=== PATIENT | female | born 1970 | race Caucasian/White ===

== ENCOUNTER 2017-03-01 18:05 | Inpatient (IN) | payer MEDICAID ==
[~2017-03-01] VITALS: Ht 160 cm; Wt 69.4 kg
[2017-03-01 19:01] LABS: BASOPHILS 0.2 % (0-2); HEMATOCRIT 47.6 % (36.0-48.0); HEMOGLOBIN 15.8 g/dL (12-16); IMMATURE GRANULOCYTES 0.3 % (0-5); LYMPHOCYTES 15.7 % (15-50); MCH 29.8 pg (26.0-34.0); MCHC 33.2 g/dL (31.0-37.0); MCV 89.6 fL (80.0-100.0); MEAN PLATELET VOLUME 9.4 fL (7.4-10.4); MONOCYTES 8.4 % (2-11); NEUTROPHILS 74.4 % (40-80); PLATELET COUNT 310 10x3/uL (130-400); RBC 5.31 10x6/uL (4.00-5.40); RDW 13.5 % (11.5-14.5); WBC 12.6 10x3/uL (4.8-10.8)
[2017-03-01 19:18] LABS: ALBUMIN 3.9 g/dL (3.4-5.0); ANION GAP 16.3 mmol/L (8-16); BILIRUBIN - TOTAL 0.6 mg/dL (0.2-1.3); CALCIUM 9.1 mg/dL (8.5-10.1); CARBON DIOXIDE 22.6 mmol/L (21.0-32.0); POTASSIUM - SERUM 3.9 mmol/L (3.5-5.1); PROTEIN - SERUM 7.3 g/dL (6.4-8.2)
--- NOTE | 2017-03-01 23:53 | NUR ---
RECIEVED PT FROM ER VIA STRETCHER, ASSISTED TO BED, ASSESSMENT, HISTORY AND MED REC COMPLETED, ABD CRAMPING AND NAUSEA PRESENT, DC'D 20G IV TO R FA WITH CATH INTACT DUE TO INFILTRATION, ORIENTED TO ROOM, CALL LIGHT IN REACH, WILL IMPLEMENT ORDERS
[2017-03-02] MEDS ORDERED: PAXIL20 MG PO (00:09)
--- NOTE | 2017-03-02 00:10 | NUR ---
14 [place] NGT INSERTED IN L NARE X 1 ATTEMPT BY MANFRED CAMERON LPN, PLACEMENT CHECKED, GREEN LIQUID TO SUCTION CANISTER, PT SANTIAGO WELL, SET TO LIT, SECURED TO NOSE AND GOWN, SR'S UP, CL IN REACH
[2017-03-02 03:14] VITALS: BP 127/67; BMI 27.1
[2017-03-02 04:00] VITALS: BP 101/60
[2017-03-02 05:43] LABS: APPEARANCE CLEAR (CLEAR); BILIRUBIN NEGATIVE (NEGATIVE); COLOR YELLOW (YELLOW); GLUCOSE NEGATIVE (NEGATIVE); KETONE NEGATIVE (NEGATIVE); LEUKOCYTE ESTERASE NEGATIVE (NEGATIVE); NITRITE NEGATIVE (NEGATIVE); PROTEIN NEGATIVE (NEGATIVE); UROBILINOGEN NORMAL (NORMAL)
--- NOTE | 2017-03-02 07:18 | NUR ---
REPORT RECEIVED FROM COORDINATOR OF HEALTH SERVICES NURSE. CALL LIGHT IN REACH.
[2017-03-02 07:50] VITALS: BP 102/76
--- NOTE | 2017-03-02 07:51 | NUR ---
ASSESSMENT COMPLETED. C/O PAIN OF 8 TO ABDOMEN. DEMEROL 50 MG SIVP. OFFERED SCDs BUT REFUSES. [place] HAT PLACED IN BR FOR MEASUREMENT OF URINE OUTPUT. CALL LIGHT IN REACH. WILL CONTINUE WITH PLAN OF CARE.
--- NOTE | 2017-03-02 07:53 | NUR ---
PASSWORD OBTAINED AND PLACED IN COMPUTER.
--- NOTE | 2017-03-02 09:43 | NUR ---
DOES NOT WANT TO GET DISTURBED FOR A COUPLE OF HOURS.
--- NOTE | 2017-03-02 11:23 | NUR ---
REQUESTING IV PAIN MEDS D/T SPASMS. DEMEROL 50 MG SIVP. STATES SHE THOUGHT HER OBSTRUCTION WAS CLEARED BECAUSE SHE HEARD IT "POP". LISTENTED TO HER BOWEL SOUNDS AND THEY WERE STILL ABSENT.
[2017-03-02 11:30] VITALS: BP 125/73
[2017-03-02 12:26] VITALS: Ht 160 cm; Wt 69.4 kg
--- NOTE | 2017-03-02 13:26 | NUR ---
IN ROOM WITH EYES CLOSED. RESP EVEN AND UNLABORED. CALL LIGHT IN REACH.
--- NOTE | 2017-03-02 14:40 | NUR ---
NGT CLAMPED PER DR. JAY'S ORDER. INSTRUCTED PATIENT THAT THE MD WANTS HER TO GET UP AND AMBULATE IN THE HALLS AND I ALSO OFFERED TO WALK WITH HER BUT THE PATIENT SAID SHE WANTED HER MOTHER TO WALK WITH HER WHOM WILL BE HERE IN 20 MINUTES.
--- NOTE | 2017-03-02 15:27 | NUR ---
* Is the patient Alert and Oriented? Yes 0 * How many steps to enter\exit or inside your home? 5 0 * PCP [facility] 0 * Pharmacy [facility] 0 * Preadmission Environment Home with Family 0 * ADLs Independent 0 * Equipment None 0 * Community resources currently utilized None 0 * Additional services required to return to the preadmission environment? Yes 0 * Can the patient safely return to the preadmission environment? Yes 0 * Has this patient been hospitalized within the prior 30 days at any hospital? No Patient Name: LALI BOYLE Admission Status: ER Accout number: [id number] Admission Date: 03-02-2017 : 1970 Admission Diagnosis: Attending: CLINT Current LOS: 1 Anticipated DC Date: Planned Disposition: Home Primary Insurance: [employer] [facility] Discharge Planning Comments: CM met with patient to assess discharge planning needs. Patient states she lives independently with her children where she plans to be discharged too. Patient states that her mother (Kaelyn Boyle) [phone] will be her trailer driver home. She states that her home is safe. At this present time she refuses home health. 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 CM will continue to follow and assist as needed. Patient denies any other CM needs at this time. PCP: [facility]: [facility] ([phone]) Pulmonary Function Technologist: Margaret Brady
[2017-03-02 15:43] VITALS: BP 117/66
--- NOTE | 2017-03-02 15:46 | NUR ---
STATES THAT SHE WALKED AROUND WITH HER MOTHER IN THE ROOM BUT SHE IS CRAMPING TOO BAD TO GET UP AND WALK NOW. KYLERN, STATED THAT SHE HAD A BM WHICH WAS LIQUID. I EXPLAINED TO PATIENT THAT SHE IS GOING TO HAVE TO WALK IN THE HALLS BEFORE THE DAY IS OVER WITH. VERBALIZED UNDERSTANDING. WILL GIVE PAIN MED AFTER I FINISH GIVING MEDS WITH ANOTHER PATIENT.
--- NOTE | 2017-03-02 16:49 | NUR ---
DEMEROL 50 MG SIVP PER C/O PAIN TO ABDOMEN. CALL LIGHT IN REACH.
--- NOTE | 2017-03-02 18:39 | NUR ---
STILL HAS NOT WALKED IN HALLWAYS. STATES SHE WILL LATER, NO CHANGES IN INITIAL ASSESSMENT. STILL REFUSES SCDs. CALL LIGHT IN REACH. WILL CONTINUE WITH PLAN OF CARE.
--- NOTE | 2017-03-02 19:05 | NUR ---
PT AMBULATING IN LUND WITH FAMILY, NO DISTRESS NOTED
[2017-03-02 20:00] VITALS: BP 115/76
--- NOTE | 2017-03-02 20:20 | NUR ---
PAGED FOR ABD SPASM MEDICATION
--- NOTE | 2017-03-02 20:30 | NUR ---
DR GALLARDO RETURNED PAGE, ORDERS RECIEVED, WILL IMPLEMENT
--- NOTE | 2017-03-02 21:21 | NUR ---
IV FLUIDS HUNG PER NOV, LEVSIN SUBLINGUAL GIVEN FOR C/O ABD SPASMS, SANTIAGO WELL, DENIES FURTHER NEEDS, CL IN REACH
--- NOTE | 2017-03-02 23:48 | NUR ---
DENIES NEEDS AT THIS TIME, CL IN REACH
[2017-03-03] VITALS: BP 101/63
--- NOTE | 2017-03-03 01:52 | NUR ---
RESTING WITH EYES CLOSED, RESP WITH EASE, NGT IN PLACE AND CLAMPED, SR'S UP, CL IN REACH
--- NOTE | 2017-03-03 03:00 | NUR ---
HYSOSCAMINE GIVEN FOR ABD SPASM, SANTIAGO WELL, DENIES OTHER NEEDS, CL IN REACH
[2017-03-03 04:00] VITALS: BP 104/37
[2017-03-03 05:09] LABS: BASOPHILS 0.2 % (0-2); HEMATOCRIT 41.9 % (36.0-48.0); HEMOGLOBIN 13.6 g/dL (12-16); IMMATURE GRANULOCYTES 0.1 % (0-5); LYMPHOCYTES 28.3 % (15-50); MCH 29.9 pg (26.0-34.0); MCHC 32.5 g/dL (31.0-37.0); MEAN PLATELET VOLUME 9.6 fL (7.4-10.4); MONOCYTES 7.5 % (2-11); NEUTROPHILS 62.9 % (40-80); PLATELET COUNT 317 10x3/uL (130-400); RBC 4.55 10x6/uL (4.00-5.40); RDW 13.5 % (11.5-14.5); WBC 10.9 10x3/uL (4.8-10.8)
[2017-03-03 05:12] LABS: MCV 92.1 fL (80.0-100.0)
[2017-03-03 05:32] LABS: CALCIUM 8.2 mg/dL (8.5-10.1); CARBON DIOXIDE 22.3 mmol/L (21.0-32.0); CHLORIDE - SERUM 106 mmol/L (98-107); CREATININE - SERUM 0.8 mg/dL (0.6-1.3); POTASSIUM - SERUM 4.3 mmol/L (3.5-5.1); SODIUM 139 mmol/L (136-145); UREA NITROGEN 11 mg/dL (7-18); eGFR NON AFRICAN AMERICAN 81 mL/min (90-120)
[2017-03-03 05:45] LABS: CALC OSMOLALITY 274 mosm/kg (275-300)
[2017-03-03 05:49] LABS: GLUCOSE 69 mg/dL (74-106)
--- NOTE | 2017-03-03 07:15 | NUR ---
REPORT RECEIVED FROM TAIL WORKER NURSE. CALL LIGHT IN REACH.
[2017-03-03] MEDS ORDERED: LEVSIN/ANASP0.125 MG SL (07:20)
--- NOTE | 2017-03-03 07:30 | NUR ---
ASSESSMENT COMPLETED. NGT DC'D WITH TIP INTACT. IV DC'D WITH TIP INTACT. WILL TAKE SHOWER. WAITING ON DC PAPERWORK AT THIS TIME.
[2017-03-03 09:17] VITALS: BP 119/67
--- NOTE | 2017-03-03 09:26 | NUR ---
Patient being discharged today with her mother to drive her home. Patient denies any HH or CM needs at this time.
--- NOTE | 2017-03-03 09:45 | NUR ---
DC'D TO VEHICLE VIA WC WITH FAMILY.
--- NOTE | 2017-03-03 10:44 | NUR ---
PT SEEN THIS AM AT 0730. ASKING FOR JUICE AND FOOD. STATES SHE IS BEING DISCHARGED TODAY. NO COMPLAINTS OF PAIN OR N/V. CALL LIGHT IN REACH
[2017-03-04 10:18] LABS: CA 15-3 20.7 U/mL (0.0-25.0); CEA 5.3 ng/mL (0.0-4.7)
== END 2017-03-03 09:45 | disposition home or self-care (01) | DRG 390 ==
LOC: D.ER 18:05 → D.MS 23:11 → OBSVTIME 23:11 → D.MS 03-02 11:11
PROVIDERS: Emergency Medicine; Family Medicine; ADMIT Family Medicine
PROC: 0D9670Z Drainage of Stomach with Drainage Device, Via Natural or Artificial Opening (ICD-10-PCS; principal; 2017-03-02)
DX: K56.60 Unspecified intestinal obstruction (principal); F17.200 Nicotine dependence, unspecified, uncomplicated

== ENCOUNTER 2017-11-29 18:44 | Observation (INO) | payer MEDICAID ==
[~2017-11-29] VITALS: Ht 160 cm; Wt 68.0 kg
[~2017-11-29 18:44] MED LIST: LEVSIN/ANASP0.125 MG SL; PAXIL20 MG PO
[2017-11-29 20:24] LABS: BASOPHILS 0.1 % (0-2); EOSINOPHILS 1.1 % (0-7); HEMATOCRIT 46.5 % (36.0-48.0); HEMOGLOBIN 15.7 g/dL (12-16); IMMATURE GRANULOCYTES 0.2 % (0-5); MCH 29.7 pg (26.0-34.0); MCHC 33.8 g/dL (31.0-37.0); MCV 88.1 fL (80.0-100.0); MEAN PLATELET VOLUME 8.9 fL (7.4-10.4); MONOCYTES 6.2 % (2-11); NEUTROPHILS 78.4 % (40-80); PLATELET COUNT 314 10x3/uL (130-400); RBC 5.28 10x6/uL (4.00-5.40); RDW 13.6 % (11.5-14.5); WBC 15.9 10x3/uL (4.8-10.8)
[2017-11-29 20:46] LABS: ALBUMIN 3.8 g/dL (3.4-5.0); ALKALINE PHOSPHATASE 145 U/L (46-116); ALT (SGPT) 21 U/L (10-68); AMYLASE - SERUM 59 U/L (25-115); CALC OSMOLALITY 275 mosm/kg (275-300); CALCIUM 9.1 mg/dL (8.5-10.1); CARBON DIOXIDE 23.9 mmol/L (21.0-32.0); CHLORIDE - SERUM 101 mmol/L (98-107); CREATININE - SERUM 0.8 mg/dL (0.6-1.3); GLUCOSE 119 mg/dL (74-106); LIPASE 154 U/L (73-393); POTASSIUM - SERUM 3.9 mmol/L (3.5-5.1); PROTEIN - SERUM 7.1 g/dL (6.4-8.2); SODIUM 137 mmol/L (136-145); UREA NITROGEN 16 mg/dL (7-18); eGFR NON AFRICAN AMERICAN 81 mL/min (90-120)
[2017-11-30] LABS: APPEARANCE CLEAR (CLEAR); COLOR YELLOW (YELLOW)
[2017-11-30 00:01] LABS: BILIRUBIN NEGATIVE (NEGATIVE); GLUCOSE NEGATIVE (NEGATIVE); KETONE NEGATIVE (NEGATIVE); NITRITE NEGATIVE (NEGATIVE); PROTEIN NEGATIVE (NEGATIVE); SPECIFIC GRAVITY 1.015 (1.005-1.020); UROBILINOGEN NORMAL (NORMAL)
[2017-11-30 05:19] VITALS: BP 127/73; BMI 26.6
[2017-11-30 07:19] LABS: ANION GAP 13.6 mmol/L (8-16); CALCIUM 8.1 mg/dL (8.5-10.1); CARBON DIOXIDE 24.2 mmol/L (21.0-32.0); CREATININE - SERUM 0.9 mg/dL (0.6-1.3); POTASSIUM - SERUM 3.8 mmol/L (3.5-5.1)
[2017-11-30 08:18] VITALS: BP 101/64
[2017-11-30 13:20] VITALS: BP 100/59
[2017-11-30 14:45] VITALS: BMI 26.5
[2017-11-30 14:52] VITALS: Ht 160 cm; Wt 68.0 kg
[2017-11-30 16:47] VITALS: BP 102/55
[2017-12-01 04:00] VITALS: BP 152/56
[2017-12-01 06:42] LABS: BASOPHILS 0.2 % (0-2); HEMATOCRIT 38.6 % (36.0-48.0); IMMATURE GRANULOCYTES 0.2 % (0-5); LYMPHOCYTES 34.4 % (15-50); MCH 29.2 pg (26.0-34.0); MCHC 31.9 g/dL (31.0-37.0); MEAN PLATELET VOLUME 9.3 fL (7.4-10.4); MONOCYTES 8.8 % (2-11); NEUTROPHILS 55.4 % (40-80); PLATELET COUNT 298 10x3/uL (130-400); RDW 13.7 % (11.5-14.5)
[2017-12-01 06:51] LABS: RBC 4.21 10x6/uL (4.00-5.40); WBC 9.3 10x3/uL (4.8-10.8)
[2017-12-01 06:52] LABS: HEMOGLOBIN 12.3 g/dL (12-16); MCV 91.7 fL (80.0-100.0)
[2017-12-01] MEDS ORDERED: PAXIL20 MG PO (08:19)
[2017-12-01 08:39] VITALS: BP 98/68
== END 2017-12-01 09:11 | disposition home or self-care (01) ==
LOC: D.ER 18:44 → D.EDHOLD 11-30 00:23 → D.MS 11-30 00:23 → OBSVTIME 12-01 09:00 → D.MS 12-01 09:11
PROVIDERS: Emergency Medicine; Family Medicine
DX: K56.609 Unspecified intestinal obstruction, unspecified as to partial versus complete obstruction (principal); R10.9 Unspecified abdominal pain; R11.2 Nausea with vomiting, unspecified; F17.200 Nicotine dependence, unspecified, uncomplicated; Z85.89 Personal history of malignant neoplasm of other organs and systems

== ENCOUNTER 2018-04-30 20:31 | Inpatient (IN) | payer OTHER ==
[~2018-04-30] VITALS: Ht 160 cm; Wt 65.5 kg
[2018-04-30 21:18] LABS: BASOPHILS 0.1 % (0-2); EOSINOPHILS 1.4 % (0-7); HEMATOCRIT 48.1 % (36.0-48.0); HEMOGLOBIN 16.8 g/dL (12-16); IMMATURE GRANULOCYTES 0.3 % (0-5); LYMPHOCYTES 29.8 % (15-50); MCH 30.7 pg (26.0-34.0); MCHC 34.9 g/dL (31.0-37.0); MCV 87.9 fL (80.0-100.0); MEAN PLATELET VOLUME 8.9 fL (7.4-10.4); MONOCYTES 8.7 % (2-11); NEUTROPHILS 59.7 % (40-80); PLATELET COUNT 301 10x3/uL (130-400); RBC 5.47 10x6/uL (4.00-5.40); RDW 13.4 % (11.5-14.5); WBC 14.7 10x3/uL (4.8-10.8)
[2018-04-30 21:52] LABS: ALBUMIN 3.9 g/dL (3.4-5.0); ANION GAP 13.4 mmol/L (8-16); BILIRUBIN - TOTAL 0.37 mg/dL (0.2-1.3); CALCIUM 9.2 mg/dL (8.5-10.1); CARBON DIOXIDE 27.9 mmol/L (21.0-32.0); CREATININE - SERUM 1.1 mg/dL (0.6-1.3); POTASSIUM - SERUM 3.3 mmol/L (3.5-5.1); PROTEIN - SERUM 7.9 g/dL (6.4-8.2)
[2018-04-30 22:40] VITALS: BP 119/77
[2018-05-01 00:37] VITALS: BP 107/62; BMI 25.6
[2018-05-01 04:00] VITALS: BP 115/67
[2018-05-01 06:12] LABS: BASOPHILS 0.2 % (0-2); EOSINOPHILS 1.6 % (0-7); HEMATOCRIT 43.4 % (36.0-48.0); HEMOGLOBIN 14.7 g/dL (12-16); IMMATURE GRANULOCYTES 0.2 % (0-5); LYMPHOCYTES 30.9 % (15-50); MCH 30.1 pg (26.0-34.0); MCHC 33.9 g/dL (31.0-37.0); MCV 88.8 fL (80.0-100.0); MEAN PLATELET VOLUME 9.1 fL (7.4-10.4); MONOCYTES 7.3 % (2-11); NEUTROPHILS 59.8 % (40-80); PLATELET COUNT 284 10x3/uL (130-400); RBC 4.89 10x6/uL (4.00-5.40); RDW 13.7 % (11.5-14.5); WBC 11.5 10x3/uL (4.8-10.8)
[2018-05-01 06:48] LABS: ALBUMIN 3.2 g/dL (3.4-5.0); ANION GAP 13.8 mmol/L (8-16); BILIRUBIN - TOTAL 0.32 mg/dL (0.2-1.3); CALCIUM 8.1 mg/dL (8.5-10.1); CARBON DIOXIDE 25.1 mmol/L (21.0-32.0); CREATININE - SERUM 0.9 mg/dL (0.6-1.3); PROTEIN - SERUM 6.7 g/dL (6.4-8.2)
[2018-05-01 07:06] LABS: POTASSIUM - SERUM 3.9 mmol/L (3.5-5.1)
[2018-05-01 09:06] VITALS: BP 114/60
[2018-05-01 09:32] VITALS: BMI 25.5
[2018-05-01 11:15] VITALS: BP 110/48
[2018-05-01 12:17] VITALS: Ht 160 cm; Wt 65.5 kg
[2018-05-01 16:11] VITALS: BP 104/57
[2018-05-01 21:27] VITALS: BP 90/47
[2018-05-02 04:00] VITALS: BP 120/67
[2018-05-02 05:46] LABS: BASOPHILS 0.4 % (0-2); EOSINOPHILS 1.6 % (0-7); HEMOGLOBIN 13.1 g/dL (12-16); IMMATURE GRANULOCYTES 0.1 % (0-5); LYMPHOCYTES 38.4 % (15-50); MCH 29.6 pg (26.0-34.0); MCHC 32.8 g/dL (31.0-37.0); MCV 90.3 fL (80.0-100.0); MEAN PLATELET VOLUME 8.9 fL (7.4-10.4); MONOCYTES 6.4 % (2-11); NEUTROPHILS 53.1 % (40-80); PLATELET COUNT 271 10x3/uL (130-400); RBC 4.43 10x6/uL (4.00-5.40); RDW 13.7 % (11.5-14.5)
[2018-05-02 05:47] LABS: WBC 8.1 10x3/uL (4.8-10.8)
[2018-05-02 06:47] LABS: ALBUMIN 2.8 g/dL (3.4-5.0); ANION GAP 11.4 mmol/L (8-16); BILIRUBIN - TOTAL 0.25 mg/dL (0.2-1.3); CALCIUM 7.8 mg/dL (8.5-10.1); CARBON DIOXIDE 26.4 mmol/L (21.0-32.0); CREATININE - SERUM 0.9 mg/dL (0.6-1.3); POTASSIUM - SERUM 3.8 mmol/L (3.5-5.1); PROTEIN - SERUM 5.8 g/dL (6.4-8.2)
[2018-05-02 08:15] VITALS: BP 108/43
[2018-05-02 12:19] VITALS: BP 103/64
[2018-05-02 16:00] VITALS: BP 115/74
[2018-05-02 20:00] VITALS: BP 124/69
[2018-05-03 06:12] VITALS: BP 117/62
[2018-05-03 07:14] LABS: BASOPHILS 0.2 % (0-2); EOSINOPHILS 1.4 % (0-7); HEMATOCRIT 37.6 % (36.0-48.0); HEMOGLOBIN 12.4 g/dL (12-16); IMMATURE GRANULOCYTES 0.3 % (0-5); LYMPHOCYTES 33.4 % (15-50); MCH 29.7 pg (26.0-34.0); MEAN PLATELET VOLUME 9.4 fL (7.4-10.4); MONOCYTES 8.5 % (2-11); NEUTROPHILS 56.2 % (40-80); PLATELET COUNT 218 10x3/uL (130-400); RBC 4.18 10x6/uL (4.00-5.40); RDW 13.5 % (11.5-14.5); WBC 9.1 10x3/uL (4.8-10.8)
[2018-05-03 07:22] LABS: ALBUMIN 2.8 g/dL (3.4-5.0); ALKALINE PHOSPHATASE 112 U/L (46-116); BILIRUBIN - TOTAL 0.21 mg/dL (0.2-1.3); CALCIUM 7.9 mg/dL (8.5-10.1); CARBON DIOXIDE 22.8 mmol/L (21.0-32.0); CHLORIDE - SERUM 109 mmol/L (98-107); CREATININE - SERUM 0.7 mg/dL (0.6-1.3); GLUCOSE 91 mg/dL (74-106); POTASSIUM - SERUM 3.9 mmol/L (3.5-5.1); PROTEIN - SERUM 5.6 g/dL (6.4-8.2); SODIUM 142 mmol/L (136-145); eGFR NON AFRICAN AMERICAN > 90 mL/min (90-120)
[2018-05-03 07:24] LABS: ALT (SGPT) 27 U/L (10-68); CALC OSMOLALITY 280 mosm/kg (275-300); UREA NITROGEN 6 mg/dL (7-18)
[2018-05-03 13:16] VITALS: BP 116/60
[2018-05-03 17:05] VITALS: BP 124/59
[2018-05-03 20:35] VITALS: BP 179/53
[2018-05-04 01:28] VITALS: BP 123/62
[2018-05-04 04:19] VITALS: BP 154/54
[2018-05-04 07:15] LABS: BASOPHILS 0.3 % (0-2); EOSINOPHILS 1.7 % (0-7); HEMATOCRIT 40.4 % (36.0-48.0); HEMOGLOBIN 13.7 g/dL (12-16); IMMATURE GRANULOCYTES 0.1 % (0-5); LYMPHOCYTES 36.3 % (15-50); MCH 29.7 pg (26.0-34.0); MCHC 33.9 g/dL (31.0-37.0); MEAN PLATELET VOLUME 9.3 fL (7.4-10.4); MONOCYTES 6.7 % (2-11); NEUTROPHILS 54.9 % (40-80); RBC 4.62 10x6/uL (4.00-5.40); RDW 13.4 % (11.5-14.5); WBC 9.4 10x3/uL (4.8-10.8)
[2018-05-04 07:25] LABS: MCV 87.4 fL (80.0-100.0); PLATELET COUNT 325 10x3/uL (130-400)
[2018-05-04 07:49] LABS: ALBUMIN 3.2 g/dL (3.4-5.0); ANION GAP 12.9 mmol/L (8-16); BILIRUBIN - TOTAL 0.24 mg/dL (0.2-1.3); CALCIUM 8.6 mg/dL (8.5-10.1); POTASSIUM - SERUM 3.9 mmol/L (3.5-5.1); PROTEIN - SERUM 6.6 g/dL (6.4-8.2)
[2018-05-04 07:50] LABS: CREATININE - SERUM 0.9 mg/dL (0.6-1.3)
== END 2018-05-04 08:35 | disposition home or self-care (01) | DRG 389 ==
LOC: D.ER 20:31 → D.EDHOLD 22:50 → D.MS 22:50
PROVIDERS: Family Medicine
DX: K56.600 Partial intestinal obstruction, unspecified as to cause (principal); K50.90 Crohn's disease, unspecified, without complications; F17.210 Nicotine dependence, cigarettes, uncomplicated; Z85.89 Personal history of malignant neoplasm of other organs and systems

== ENCOUNTER 2021-02-20 11:30 | Outpatient (CLI) | payer OTHER ==
[2018-05-01 12:17] VITALS: BMI 25.5
== END 2021-02-20 12:00 | disposition home or self-care (01) ==
LOC: D.MAMMO 11:30
PROVIDERS: ATTEND Family Medicine
DX: Z12.31 Encounter for screening mammogram for malignant neoplasm of breast (principal)